=== PATIENT | male | born 1945 | race Caucasian/White ===

== ENCOUNTER → 2017-07-21 08:49 | Outpatient (CLI) | payer MEDICARE, OTHER, SELFPAY ==
[2017-06-30 11:44] VITALS: BP 124/66; BMI 29.4
--- NOTE | 2017-07-21 08:56 | ECHOD_ITS ---
Reason For Study: Valve Replacement Eval Procedure This was a 2D Doppler, Color Flow transthoracic echocardiogram. Exam performed in department. Left Ventricle Normal LV size. Mild concentric left ventricular hypertrophy. Left ventricular systolic function is normal. The estimated ejection fraction is 60 %. Transmitral diastolic flow velocities suggest mild (stage 1) diastolic dysfunction (reversed pattern). No regional wall motion abnormalities noted. Right Ventricle Normal RV size. Normal systolic function. Atria Normal left atrium. The right atrium is mildly enlarged. Mitral Valve There is mild mitral annular calcification. Trivial eccentric mitral valve insufficiency. Tricuspid Valve Normal tricuspid valve. Mild (1+) tricuspid valve insufficiency. Pulmonary artery systolic pressure is 25 mmHg. Aortic Valve Peak aortic valve gradient 29 mmHg. Mean aortic valve gradient 16 mmHg. Mild aortic stenosis. Calculated aortic valve area (continuity equation) is 1.7 cm2. Stable appearing bioprosthetic aortic valve apparatus. Pulmonic Valve Normal pulmonic valve. Great Vessels Normal aortic root. The pulmonary artery is normal size. Normal inferior vena cava. Pericardium/Pleural No pericardial effusion. MMode/2D Measurements & Calculations LVIDd: 4.7 cm IVSd: 1.4 cm LVOT diam: 2.1 cm LVIDs: 3.0 cm LVPWd: 1.2 cm LVOT area: 3.6 cm2 RVDd: 4.9 cm FS: 36.5 % Ao root diam: 3.2 cm LAV(MOD-bp): 54.1 ml LA A4 area: 18.0 cm2 LA dimension: 4.5 cm LAV(MOD-bp) Indexed: 25.5 ml/m2 LAV(MOD-sp2): 56.0 ml LAV(MOD-sp4): 44.9 ml RA A4 area: 21.6 cm2 Time Measurements MV dec time: 0.16 sec Doppler Measurements & Calculations MV E max angel: 94.8 cm/sec Lat Peak E' Angel: 5.6 cm/sec Med Peak E' Angel: 6.9 cm/sec MV A max angel: 113.1 cm/sec E/E' lat: 17.1 E/E' med: 13.7 MV E/A: 0.84 MV V2 max: 114.9 cm/sec MV P1/2t max angel: 99.8 cm/sec Ao V2 max: 267.6 cm/sec MV max P.3 mmHg MV P1/2t: 88.7 msec Ao max P.6 mmHg MV V2 mean: 68.1 cm/sec MV dec slope: 329.5 cm/sec2 Ao V2 mean: 192.9 cm/sec MV mean P.1 mmHg MVA(P1/2t): 2.5 cm2 Ao mean P.6 mmHg MV V2 VTI: 38.1 cm Ao V2 VTI: 61.7 cm MVA(VTI): 2.7 cm2 PATIENCE(I,D): 1.7 cm2 PATIENCE(V,D): 1.8 cm2 LV V1 max: 134.9 cm/sec SV(LVOT): 103.6 ml PA V2 max: 113.5 cm/sec LV V1 max P.3 mmHg LV V1 mean P.6 mmHg LV V1 mean: 102.8 cm/sec LV V1 VTI: 29.2 cm PI end-d angel: 98.4 cm/sec TR max angel: 227.7 cm/sec TR max P.8 mmHg Interpretation Summary Normal LV size. Mild concentric left ventricular hypertrophy. Left ventricular systolic function is normal. The estimated ejection fraction is 60 %. Transmitral diastolic flow velocities suggest mild (stage 1) diastolic dysfunction (reversed pattern). Mild aortic stenosis. Stable appearing bioprosthetic aortic valve apparatus. Ordering Physician: Nicolás Mahajan Referring Physician: Matheus Howard Performed By: Merlyn Handy, ULICES, RVT
== END ==
PROVIDERS: Family Provider Family Medicine; PCP Family Medicine; Visit Provider Internal Medicine Cardiovascular Disease
DX: I48.0 Paroxysmal atrial fibrillation (principal)
CPT/HCPCS: 93306

== ENCOUNTER → 2019-07-31 10:47 | Outpatient (CLI) | payer MEDICARE, OTHER, SELFPAY ==
[2019-07-04 09:52] VITALS: BMI 27.6
--- NOTE | 2019-07-31 10:47 | ECHOD_ITS ---
Version 2 Reason For Study: Valve Replacement Eval Procedure This was a 2D Doppler, Color Flow transthoracic echocardiogram. Exam performed in department. Left Ventricle Normal LV size. Left ventricular systolic function is normal. The estimated ejection fraction is 60 %. Stage 1 diastolic dysfunction. No regional wall motion abnormalities noted. Right Ventricle Normal RV size. Normal systolic function. Atria Normal left atrium. Normal right atrium. Mitral Valve Normal mitral valve. Tricuspid Valve Normal tricuspid valve. Mild (1+) tricuspid valve insufficiency. Pulmonary artery systolic pressure is 35 mmHg. Aortic Valve Mild diffuse aortic valve thickening. Peak aortic valve gradient 35 mmHg. Mean aortic valve gradient 20 mmHg. Mild aortic stenosis. Bioprosthetic aortic valve. Pulmonic Valve Normal pulmonic valve. Great Vessels Normal aortic root. The pulmonary artery is normal size. Normal inferior vena cava. Pericardium/Pleural No pericardial effusion. MMode/2D Measurements & Calculations LVIDd: 4.7 cm IVSd: 1.3 cm LVOT diam: 2.1 cm LVIDs: 2.6 cm LVPWd: 1.1 cm LVOT area: 3.4 cm2 RVDd: 4.5 cm FS: 44.2 % Ao root diam: 3.6 cm LAV(MOD-bp): 60.3 ml LVAd ap4: 29.4 cm2 LAV(MOD-bp) Indexed: 29.3 ml/m2 EDV(MOD-sp4): 82.9 ml LAV(MOD-sp2): 68.8 ml EDV(sp4-el): 86.3 ml LAV(MOD-sp4): 49.7 ml LVAs ap4: 15.1 cm2 ESV(MOD-sp4): 26.6 ml ESV(sp4-el): 26.4 ml EF(MOD-sp4): 67.9 % EF(sp4-el): 69.4 % SV(MOD-sp4): 56.3 ml SV(sp4-el): 59.9 ml LA A4 area: 18.3 cm2 LA dimension(2D): 4.7 cm RA A4 area: 18.4 cm2 Doppler Measurements & Calculations MV E max angel: 97.5 cm/sec Lat Peak E' Angel: 6.9 cm/sec Med Peak E' Angel: 6.5 cm/sec MV A max angel: 122.4 cm/sec E/E' lat: 14.1 E/E' med: 15.0 MV E/A: 0.80 MV V2 max: 132.0 cm/sec Ao V2 max: 296.7 cm/sec LV V1 max: 155.0 cm/sec MV max P.0 mmHg Ao max P.2 mmHg LV V1 max P.6 mmHg MV V2 mean: 80.4 cm/sec Ao V2 mean: 215.0 cm/sec LV V1 mean P.3 mmHg MV mean P.8 mmHg Ao mean P.2 mmHg LV V1 mean: 121.2 cm/sec MV V2 VTI: 43.5 cm Ao V2 VTI: 64.7 cm LV V1 VTI: 34.1 cm MVA(VTI): 2.6 cm2 PATIENCE(I,D): 1.8 cm2 PATIENCE(V,D): 1.8 cm2 SV(LVOT): 114.4 ml PA V2 max: 117.5 cm/sec TR max angel: 276.6 cm/sec TR max P.6 mmHg Interpretation Summary Normal LV size. Left ventricular systolic function is normal. The estimated ejection fraction is 60 %. Pulmonary artery systolic pressure is 35 mmHg. Bioprosthetic aortic valve. Mean aortic valve gradient 20 mmHg. Mild aortic stenosis. Stage 1 diastolic dysfunction. Compared to prior study, there is no significant change. Ordering Physician: Nicolás Mahajan Referring Physician: Matheus Howard Performed By: Merlyn Handy, ULICES, RVT
== END ==
PROVIDERS: PCP Family Medicine; Referring Provider Internal Medicine Cardiovascular Disease; Visit Provider Internal Medicine Cardiovascular Disease
DX: I48.0 Paroxysmal atrial fibrillation (principal)
CPT/HCPCS: 93306

== ENCOUNTER → 2020-07-24 09:48 | Outpatient (CLI) | payer MEDICARE, OTHER, SELFPAY ==
[2020-07-04 08:55] VITALS: BMI 26.6
--- NOTE | 2020-07-24 09:53 | ECHOD_ITS ---
Version 2 Reason For Study: VALVE REPL Procedure This was a 2D Doppler, Color Flow transthoracic echocardiogram. Exam performed in department. Left Ventricle Normal LV size. Left ventricular systolic function is normal. The estimated ejection fraction is 60 %. Stage 1 diastolic dysfunction. No regional wall motion abnormalities noted. Right Ventricle Normal RV size. Normal systolic function. Atria The left atrium is mildly enlarged. Normal right atrium. Mitral Valve Normal mitral valve. There is mild mitral annular calcification. Tricuspid Valve Normal tricuspid valve. Mild tricuspid valve insufficiency. Pulmonary artery systolic pressure is 34 mmHg. Aortic Valve Peak aortic valve gradient 31 mmHg. Mean aortic valve gradient 18 mmHg. Mild aortic stenosis. Bioprosthetic aortic valve. Pulmonic Valve Normal pulmonic valve. Great Vessels Normal aortic root. Pericardium/Pleural No pericardial effusion. MMode/2D Measurements & Calculations LVIDd: 4.5 cm IVSd: 1.1 cm LVOT diam: 2.0 cm LVIDs: 2.8 cm LVPWd: 1.1 cm LVOT area: 3.2 cm2 RVDd: 4.1 cm FS: 38.2 % Ao root diam: 3.9 cm LAV(MOD-bp): 76.0 ml LA A4 area: 23.3 cm2 LAV(MOD-bp) Indexed: 36.8 ml/m2 LAV(MOD-sp2): 77.2 ml LAV(MOD-sp4): 74.0 ml LA dimension(2D): 4.6 cm RA A4 area: 20.8 cm2 Time Measurements MV dec time: 0.30 sec Doppler Measurements & Calculations MV E max angel: 97.2 cm/sec Lat Peak E' Angel: 7.3 cm/sec Med Peak E' Angel: 5.8 cm/sec MV A max angel: 120.4 cm/sec E/E' lat: 13.3 E/E' med: 16.7 MV E/A: 0.81 MV V2 max: 123.7 cm/sec Ao V2 max: 278.6 cm/sec LV V1 max: 111.7 cm/sec MV max P.1 mmHg Ao max P.1 mmHg LV V1 max P.0 mmHg MV V2 mean: 69.3 cm/sec Ao V2 mean: 204.9 cm/sec LV V1 mean P.8 mmHg MV mean P.3 mmHg Ao mean P.3 mmHg LV V1 mean: 78.7 cm/sec MV V2 VTI: 43.4 cm Ao V2 VTI: 64.1 cm LV V1 VTI: 25.8 cm MVA(VTI): 1.9 cm2 PATIENCE(I,D): 1.3 cm2 PATIENCE(V,D): 1.3 cm2 SV(LVOT): 82.7 ml PA V2 max: 114.4 cm/sec PI end-d angel: 84.0 cm/sec TR max angel: 278.1 cm/sec MV P1/2t-pr_phl: 80.9 msec TR max P.9 mmHg Interpretation Summary Normal LV size. Left ventricular systolic function is normal. The estimated ejection fraction is 60 %. Stage 1 diastolic dysfunction. The left atrium is mildly enlarged. The global longitudinal strain is normal. The global longitudinal strain = -18.2 % (normal). Ordering Physician: Nicolás Mahajan Referring Physician: ALBAN GRAY Performed By: Shilpa Becker, HELADIOCS, RVT
== END ==
PROVIDERS: PCP Family Medicine; Referring Provider Internal Medicine Cardiovascular Disease; Visit Provider Internal Medicine Cardiovascular Disease
DX: I48.0 Paroxysmal atrial fibrillation (principal)
CPT/HCPCS: 93306

== ENCOUNTER → 2022-08-12 | Outpatient (CLI) | payer MEDICARE, OTHER, SELFPAY ==
--- NOTE | 2022-08-12 08:53 | ECHOD_ITS ---
Reason For Study: AVR Procedure This was a 2D Doppler, Color Flow transthoracic echocardiogram. Exam performed in department. Left Ventricle Normal LV size. Left ventricular systolic function is normal. The estimated ejection fraction is 60 %. No regional wall motion abnormalities noted. Right Ventricle Normal RV size. Normal systolic function. Atria The left atrium is moderately enlarged. The right atrium is mildly enlarged. Mitral Valve Normal mitral valve. Mild (1+) eccentric mitral valve insufficiency. Tricuspid Valve Normal tricuspid valve. Mild (1+) tricuspid valve insufficiency. Pulmonary artery systolic pressure is 40 mmHg. Aortic Valve Peak aortic valve gradient 33 mmHg. Mean aortic valve gradient 19.3 mmHg. Bioprosthetic aortic valve. Pulmonic Valve Normal pulmonic valve. Great Vessels Normal aortic root. The pulmonary artery is normal size. Normal inferior vena cava. Pericardium/Pleural No pericardial effusion. MMode/2D Measurements & Calculations LVIDd: 5.5 cm IVSd: 0.93 cm LVOT diam: 1.8 cm LVIDs: 3.8 cm LVPWd: 0.89 cm LVOT area: 2.4 cm2 RVDd: 4.2 cm FS: 31.4 % LAV(MOD-bp): 106.0 ml LVAd ap4: 35.0 cm2 SV(MOD-sp4): 75.8 ml LAV(MOD-bp) Indexed: 53.1 ml/m2 LVLd ap4: 9.1 cm LAV(MOD-sp2): 116.6 ml EDV(MOD-sp4): 116.4 ml LAV(MOD-sp4): 96.4 ml EDV(sp4-el): 113.9 ml LVAs ap4: 18.7 cm2 LVLs ap4: 7.4 cm ESV(MOD-sp4): 40.6 ml ESV(sp4-el): 39.8 ml EF(MOD-sp4): 65.1 % EF(sp4-el): 65.0 % SV(sp4-el): 74.1 ml LA A4 area: 28.1 cm2 LA dimension(2D): 5.6 cm RA A4 area: 23.1 cm2 Time Measurements MV dec time: 0.21 sec Doppler Measurements & Calculations MV E max angel: 117.7 cm/sec Lat Peak E' Angel: 8.2 cm/sec Med Peak E' Angel: 6.9 cm/sec MV A max angel: 111.1 cm/sec E/E' lat: 14.3 E/E' med: 16.9 MV E/A: 1.1 MV V2 max: 123.6 cm/sec MV P1/2t max angel: 232.9 cm/sec Ao V2 max: 286.7 cm/sec MV max P.1 mmHg MV P1/2t: 134.2 msec Ao max P.9 mmHg MV V2 mean: 78.1 cm/sec Ao V2 mean: 205.8 cm/sec MV mean P.8 mmHg MV dec slope: 508.2 cm/sec2 Ao mean P.3 mmHg MV V2 VTI: 46.3 cm MVA(P1/2t): 1.6 cm2 Ao V2 VTI: 73.8 cm AV (velocity ratio): 0.43 MVA(VTI): 1.7 cm2 PATIENCE(I,D): 1.0 cm2 PATIENCE(V,D): 1.0 cm2 LV V1 max: 118.4 cm/sec SV(LVOT): 77.2 ml PA V2 max: 104.2 cm/sec LV V1 max P.6 mmHg PA V2 mean: 64.3 cm/sec LV V1 mean P.9 mmHg LV V1 mean: 94.5 cm/sec LV V1 VTI: 31.5 cm TR max angel: 304.3 cm/sec TR max P.0 mmHg ECHO/Echo Complete Interpretation Summary Normal LV size. Left ventricular systolic function is normal. The left atrium is moderately enlarged. The right atrium is mildly enlarged. The estimated ejection fraction is 60 %. Bioprosthetic aortic valve. Mean aortic valve gradient 19.3 mmHg. Compared to previous study, the left ventricular systolic function is the same. . Ordering Physician: Nicolás Mahajan Referring Physician: Nicolás Mahajan Performed By: Yun Newtno RCS
== END | disposition home or self-care (01) ==
LOC: CVS 08:52
PROVIDERS: PCP Family Medicine; Referring Provider Internal Medicine Cardiovascular Disease; Visit Provider Internal Medicine Cardiovascular Disease
DX: I35.0 Nonrheumatic aortic (valve) stenosis (principal)
CPT/HCPCS: 93306

== ENCOUNTER → 2023-09-03 | Outpatient (CLI) | payer MEDICARE, OTHER, SELFPAY ==
--- NOTE | 2023-09-03 08:34 | ECHOD_ITS ---
Reason For Study: AVR, Afib Procedure This was a 2D Doppler, Color Flow transthoracic echocardiogram. Exam performed in department. Left Ventricle Normal LV size. Left ventricular systolic function is normal. The estimated ejection fraction is 65 %. Stage 1 diastolic dysfunction. No regional wall motion abnormalities noted. Right Ventricle Normal RV size. Normal systolic function. Atria Normal left atrium. Normal right atrium. Mitral Valve Bileaflet diffuse mitral valve thickening. Mild (1+) eccentric mitral valve insufficiency. Tricuspid Valve Normal tricuspid valve. Mild (1+) tricuspid valve insufficiency. Pulmonary artery systolic pressure is 43 mmHg. Aortic Valve Peak aortic valve gradient 40 mmHg. Mean aortic valve gradient 25 mmHg. Mild (1+) aortic valve insufficiency. Bioprosthetic aortic valve. Pulmonic Valve Normal pulmonic valve. Great Vessels Normal aortic root. The pulmonary artery is normal size. Inferior vena cava collapse with respiration. Pericardium/Pleural No pericardial effusion. MMode/2D Measurements & Calculations LVIDd: 4.8 cm IVSd: 0.95 cm LVOT diam: 2.0 cm LVIDs: 2.8 cm LVPWd: 0.96 cm LVOT area: 3.1 cm2 RVDd: 4.4 cm FS: 43.1 % Ao root diam: 3.7 cm LAV(MOD-bp): 51.6 ml LVAd ap4: 35.9 cm2 LAV(MOD-bp) Indexed: 26.5 ml/m2 LVLd ap4: 9.0 cm LAV(MOD-sp2): 57.9 ml EDV(MOD-sp4): 118.7 ml LAV(MOD-sp4): 43.6 ml EDV(sp4-el): 121.3 ml LVAs ap4: 18.8 cm2 LVLs ap4: 7.6 cm ESV(MOD-sp4): 41.9 ml ESV(sp4-el): 39.3 ml EF(MOD-sp4): 64.7 % EF(sp4-el): 67.6 % SV(MOD-sp4): 76.8 ml SV(sp4-el): 82.0 ml LA A4 area: 16.8 cm2 LA dimension(2D): 4.8 cm RA A4 area: 16.2 cm2 TAPSE: 2.5 cm Time Measurements MV dec time: 0.31 sec Doppler Measurements & Calculations MV E max angel: 114.3 cm/sec Lat Peak E' Angel: 5.5 cm/sec Med Peak E' Angel: 4.7 cm/sec MV A max angel: 121.3 cm/sec E/E' lat: 20.6 E/E' med: 24.3 MV E/A: 0.94 Ao V2 max: 316.6 cm/sec AI max angel: 455.0 cm/sec MV dec slope: 370.1 cm/sec2 Ao max P.6 mmHg AI max P.8 mmHg Ao V2 mean: 237.7 cm/sec Ao mean P.8 mmHg AI dec slope: 196.9 cm/sec2 Ao V2 VTI: 77.2 cm AI P1/2t: 676.7 msec AV (velocity ratio): 0.50 PATIENCE(I,D): 1.5 cm2 PATIENCE(V,D): 1.5 cm2 LV V1 max: 153.4 cm/sec SV(LVOT): 117.7 ml PA V2 max: 101.1 cm/sec LV V1 max P.4 mmHg LV V1 mean P.9 mmHg LV V1 mean: 117.2 cm/sec LV V1 VTI: 38.5 cm TR max angel: 313.4 cm/sec TR max P.3 mmHg ECHO/Echo Complete Interpretation Summary Normal LV size. Left ventricular systolic function is normal. The estimated ejection fraction is 65 %. Stage 1 diastolic dysfunction. Mean aortic valve gradient 25 mmHg. The previous mean aortic valve gradient in 2022 was 19. Bioprosthetic aortic valve. Ordering Physician: Sourav Handy Referring Physician: Matheus Howard Performed By: Merlyn Handy RDCS, RVT
== END | disposition home or self-care (01) ==
LOC: CVS 08:31
PROVIDERS: PCP Family Medicine; Referring Provider Nurse Practitioner Family; Visit Provider Nurse Practitioner Family
DX: I35.0 Nonrheumatic aortic (valve) stenosis (principal); I48.0 Paroxysmal atrial fibrillation; Z95.2 Presence of prosthetic heart valve
CPT/HCPCS: 93306

== ENCOUNTER → 2024-09-05 | Outpatient (CLI) | payer MEDICARE, OTHER, SELFPAY ==
--- NOTE | 2024-09-05 12:44 | ECHOD_ITS ---
Reason For Study Reason For Study: Prosthetic Heart Valve Procedure This was a 2D Doppler, Color Flow transthoracic echocardiogram. Exam performed in department. Left Ventricle Normal LV size. Left ventricular systolic function is normal. The left ventricular ejection fraction is 65 %. Stage 1 diastolic dysfunction. No regional wall motion abnormalities noted. Right Ventricle Normal RV size. Normal systolic function. Atria Normal left atrium. Normal right atrium. Mitral Valve Bileaflet diffuse mitral valve thickening. Mild (1+) eccentric mitral valve insufficiency. Tricuspid Valve Normal tricuspid valve. Mild (1+) tricuspid valve insufficiency. Pulmonary artery systolic pressure is 29 mmHg. Aortic Valve Peak aortic valve gradient 74 mmHg. Mean aortic valve gradient 46 mmHg. Mild (1+) aortic valve insufficiency. Bioprosthetic aortic valve. Pulmonic Valve Normal pulmonic valve. Great Vessels Normal aortic root. The pulmonary artery is normal size. Normal inferior vena cava. Pericardium/Pleural No pericardial effusion. MMode/2D Measurements & Calculations LVIDd: 5.0 cm IVSd: 1.2 cm LVOT diam: 2.0 cm LVIDs: 3.0 cm LVPWd: 1.1 cm LVOT area: 3.1 cm2 RVDd: 3.9 cm FS: 39.7 % Ao root diam: 3.4 cm LAV(MOD-bp): 71.9 ml LVAd ap4: 38.0 cm2 LAV(MOD-bp) Indexed: 37.3 ml/m2 LVLd ap4: 9.1 cm LAV(MOD-sp2): 91.1 ml EDV(MOD-sp4): 131.4 ml LAV(MOD-sp4): 54.4 ml EDV(sp4-el): 134.7 ml LVAs ap4: 20.1 cm2 LVLs ap4: 7.2 cm ESV(MOD-sp4): 47.0 ml ESV(sp4-el): 47.2 ml EF(MOD-sp4): 64.2 % EF(sp4-el): 64.9 % SV(MOD-sp4): 84.4 ml SV(sp4-el): 87.4 ml LA A4 area: 19.6 cm2 SI(MOD-sp4): 43.8 ml/m2 LA dimension(2D): 4.7 cm RA A4 area: 17.3 cm2 TAPSE: 2.0 cm Time Measurements MV dec time: 0.37 sec Doppler Measurements & Calculations MV E max angel: 105.6 cm/sec Lat Peak E' Angel: 10.1 cm/sec Med Peak E' Angel: 6.9 cm/sec MV A max angel: 120.0 cm/sec E/E' lat: 10.5 E/E' med: 15.2 MV E/A: 0.88 MV V2 max: 120.1 cm/sec Ao V2 max: 430.2 cm/sec MV max P.8 mmHg MV dec slope: 282.0 cm/sec2 Ao max P.1 mmHg MV V2 mean: 71.4 cm/sec Ao V2 mean: 328.0 cm/sec MV mean P.4 mmHg Ao mean P.5 mmHg MV V2 VTI: 42.4 cm Ao V2 VTI: 109.4 cm AV (velocity ratio): 0.38 MVA(VTI): 3.1 cm2 PATIENCE(I,D): 1.2 cm2 PATIENCE(V,D): 1.1 cm2 AI max angel: 429.9 cm/sec LV V1 max: 157.8 cm/sec SV(LVOT): 130.4 ml AI max P.0 mmHg LV V1 max P.0 mmHg LV V1 mean P.5 mmHg AI dec slope: 332.8 cm/sec2 LV V1 mean: 122.8 cm/sec AI P1/2t: 378.3 msec LV V1 VTI: 42.0 cm PA V2 max: 100.3 cm/sec TR max angel: 249.7 cm/sec TR max P.9 mmHg ECHO/Echo Complete Interpretation Summary Normal LV size. Left ventricular systolic function is normal. The left ventricular ejection fraction is 65 %. Stage 1 diastolic dysfunction. Mean aortic valve gradient 46 mmHg. Mild (1+) aortic valve insufficiency. Bioprosthetic aortic valve. Compared to the previous the aortic valve gradients are significantly increased . Ordering Physician: Sourav Handy Referring Physician: Matheus Howard Performed By: Merlyn Handy, ULICES, RVT
== END | disposition home or self-care (01) ==
LOC: CVS 12:41
PROVIDERS: PCP Family Medicine; Referring Provider Nurse Practitioner Family; Visit Provider Nurse Practitioner Family
DX: I35.0 Nonrheumatic aortic (valve) stenosis (principal); I48.0 Paroxysmal atrial fibrillation; I10 Essential (primary) hypertension; E78.5 Hyperlipidemia, unspecified; Z95.2 Presence of prosthetic heart valve
CPT/HCPCS: 93306

== ENCOUNTER → 2024-09-21 | Outpatient (CLI) | payer MEDICARE, OTHER, SELFPAY ==
--- NOTE | 2024-09-21 10:33 | RAD_ITS ---
PROCEDURE: CHEST PA AND LATERAL 09/21/2024 REASON FOR EXAM: AVR TECHNIQUE: Frontal and lateral views of the chest. COMPARISON: None available FINDINGS: The lungs appear clear. Pulmonary vascularity appears within limits. No pleural effusion. Incidental note of an azygous fissure, anatomic variant. Status post median sternotomy and aortic valve replacement. The cardiac and mediastinal contours appear within limits. Atherosclerotic changes at the aortic arch. Visualized osseous structures appear within limits. RAD/Chest PA and Lateral IMPRESSION: No evidence of acute disease. Reading Location: [id number]
[2024-09-21 11:25] LABS: Absolute Lymphocyte Count 1.39 X10^3/uL (0.83-4.51); Basophil# 0.04 X10^3/uL; Basophil% 0.6 % (0-1); Eosinophil# 0.12 X10^3/uL; Eosinophils% 1.9 % (0-5); Hemoglobin 14.1 g/dL (13.0-16.5); Lymphocyte # 1.39 X10^3/ul (0.83-4.51); Lymphocyte % 22.5 % (19-41); Mean Corp Hgb Conc 33.6 g/dL (32-36); Mean Corpuscular Hgb 32.4 pg (27.0-32.0); Mean Corpuscular Volume 96.6 fL (80-94); Mean Platelet Vol. 11.3 fl (6.2-12.0); Monocyte# 0.62 X10^3/uL; NRBC Flagged by Analyzer 0 % (0-5); Neutrophil # 3.97 X10^3/uL (2.7-7.7); Neutrophil % 64.5 % (47-70); Platelet Count 116 K/mm3 (150-450); RBC Distribution Width CV 12.8 % (11.6-14.6); RBC Distribution Width SD 44.9 fl (35.1-43.9); Red Blood Count 4.35 M/mm3 (4.6-6.2); White Blood Count 6.2 K/mm3 (4.4-11.0)
[2024-09-21 13:29] LABS: Anion Gap 11 (5-15); BUN 19 mg/dL (4-19); BUN/Creat Ratio 18.3 RATIO (10-20); Calcium,Total 8.9 mg/dL (7.6-11.0); Carbon Dioxide 24.9 mmol/L (21.0-32.0); Chloride 107 mmol/L (98-108); Creatinine, Serum 1.01 mg/dL (0.70-1.20); EST Glomerular Filtration Rate 77 (>60); Glucose 92 mg/dL (70-99); Potassium 4.2 mmol/L (3.3-5.1); Sodium Level 143 mmol/L (133-145)
== END | disposition home or self-care (01) ==
LOC: LAB 10:22
PROVIDERS: PCP Family Medicine; Referring Provider Internal Medicine Cardiovascular Disease; Visit Provider Internal Medicine Cardiovascular Disease
DX: I35.0 Nonrheumatic aortic (valve) stenosis (principal); Z95.2 Presence of prosthetic heart valve
CPT/HCPCS: 36415; 71046; 80048; 85025

== ENCOUNTER 2024-10-09 09:36 | Day surgery (SDC) | payer MEDICARE, OTHER, SELFPAY ==
[2024-10-06 08:17] VITALS: BMI 23.4
--- NOTE | 2024-10-09 09:41 | ECHOTEE_ITS ---
Reason For Study Reason For Study: AORTIC STENOSIS Medication RICARDO probe 6VT-D (SN [id number]) passed without difficulty. No complications were noted. Cetacaine Topical [place] given X3 orally. Versed 2 mg given slow IVP. Fentanyl 50 mcg given slow IVP. Performed a rapid injection of agitated mix of 9 cc saline and 1cc air to assess for atrial septal defect. Left Ventricle Normal LV size. Left ventricular systolic function is normal. The left ventricular ejection fraction is 60 %. No regional wall motion abnormalities noted. Right Ventricle Normal RV size. Normal systolic function. Atria Bubble contrast study is negative for PFO/ASD. Normal left atrium. No thrombus is detected in the left atrial appendage. Normal right atrium. Mitral Valve Bileaflet diffuse mitral valve thickening. Mild (1+) eccentric mitral valve insufficiency. Tricuspid Valve Normal tricuspid valve. Mild tricuspid valve insufficiency. Aortic Valve Moderate (2+) eccentric aortic valve insufficiency. Bioprosthetic aortic valve. Pulmonic Valve Normal pulmonic valve. Mild (1+) pulmonic valve insufficiency. Vessels Normal aortic root. Pericardium No pericardial effusion. ECHO/Echo Transesophageal (RICARDO) Interpretation Summary Bubble contrast study is negative for PFO/ASD. Normal LV size. Left ventricular systolic function is normal. The left ventricular ejection fraction is 60 %. No thrombus is detected in the left atrial appendage. Mild (1+) eccentric mitral valve insufficiency. Bioprosthetic aortic valve. Moderate (2+) eccentric aortic valve insufficiency. Ordering Physician: Nicolás Mahajan Referring Physician: Nicolás Mahajan MD Performed By: Sol Aiken CHARI
--- NOTE | 2024-10-09 12:05 | CL.D_ITS ---
Patient Name: JOCE CANO Study Date: 10/09/2024 Performing: Nicolás Mahajan MD Ht: 71 inches 180.34 cm : 1945 Wt: 167.99 lbs 76.2 kg Age: 79 Gender: male BSA: 1.96 PROCEDURE(S) PERFORMED DC02-(40518)LHC/COR DC11-([id number])AO ROOT ANGIO WITH HEART CATH CLINICAL PROFILE AND INDICATIONS Indications: Valvular Disease Heart Failure: None Stress/Imaging Stress/Image Study Performed: No CAD Presentations: Other: sob CONCLUSIONS Normal coronary arteries Normal LV size, wall motion,and systolic function Bioprosthetic aortic valve with 2-3+ aortic regurgitation RECOMMENDATIONS /Aggressive control of blood pressure and will seek surgical or TAVR opinion DESCRIPTION OF PROCEDURE The patient arrived to the procedure lab. The risks and benefits of the procedure as well as a full description of our services here and current unavailability of surgical backup were fully explained to the patient and/or their significant other prior to the catheterization. The Timeout was completed, verifying the correct patient and procedure. The patient's procedural site was prepped and draped in the usual fashion. Local anesthetic was given subcutaneously to right radial region with Lidocaine 2%. Using a modified Seldinger technique, arterial access was obtained via the right radial artery, a 6Fr sheath was inserted. Left Coronary Artery selective angiography was performed in multiple views using a 5 Fr. 4.0 [place] catheter. Right Coronary Artery selective angiography was then performed in multiple views using a 5 Fr. 4.0 Cop[place] catheter. Ascending (root) aorta selective angiography was then performed in single view. Ascending (root) aorta selective angiography was then performed in single view.The arterial sheath was pulled and a TR Band was applied for hemostasis 10 ml of air CORONARY ANGIOGRAPHY DOMINANCE: Right Dominant LEFT HEART ASSESSMENT Left Ventricular Ejection Fraction: by Echo 60 % Normal LV wall motion Normal Left Ventricular systolic function LEFT MAIN: Angiographically normal LEFT ANTERIOR DESCENDING ARTERY: No significant disease noted CIRCUMFLEX ARTERY: No significant disease noted RIGHT CORONARY ARTERY: Angiographically normal VALVE FINDINGS: Bioprosthetic trileaflet aortic valve Aortic Valve Insufficiency: Grade 2-3 AORTIC ROOT: Angiographically normal COMPLICATIONS No Complications PROCEDURE MEDICATIONS Oxygen: 2 L/min via nasal cannula Heparin given IA 10/09/2024 11:39:02 Verapamil 2.5mg, Ntg 100mcgs, 3000 units of Heparin given IA 10/09/2024 11:39:02 SUMMARY OF HEMODYNAMIC DATA Time AIR REST AO 0/0 (0) 11:35:22 AO 192/55 (93) 11:38:40 AO 135/52 (84) 11:40:48 12:03:26 Signed By Nicolás Mahajan MD On 10/09/2024 12:04:47 Nicolás Mahajan MD
== END 2024-10-09 14:11 | disposition home or self-care (01) ==
PROVIDERS: PCP Family Medicine; Referring Provider Internal Medicine Cardiovascular Disease; Visit Provider Internal Medicine Cardiovascular Disease
DX: Z95.2 Presence of prosthetic heart valve (principal); I48.0 Paroxysmal atrial fibrillation; I35.0 Nonrheumatic aortic (valve) stenosis; I10 Essential (primary) hypertension; I35.1 Nonrheumatic aortic (valve) insufficiency; E78.2 Mixed hyperlipidemia; N40.0 Benign prostatic hyperplasia without lower urinary tract symptoms; Z79.82 Long term (current) use of aspirin; Z79.899 Other long term (current) drug therapy; Z86.718 Personal history of other venous thrombosis and embolism; I08.3 Combined rheumatic disorders of mitral, aortic and tricuspid valves; I08.1 Rheumatic disorders of both mitral and tricuspid valves; R94.39 Abnormal result of other cardiovascular function study
CPT/HCPCS: 93312; 93320; 93325; 93454; 93567; Q9967; A4216; C1769; C1894

== ENCOUNTER → 2025-04-11 | Outpatient (CLI) | payer MEDICARE, OTHER, SELFPAY ==
--- NOTE | 2025-04-11 08:50 | ECHOL_ITS ---
Reason For Study : VALVE REPLACEMENT HISTORY Procedure This was a limited 2D transthoracic echocardiogram. Exam performed in department. Left Ventricle Normal LV size. The left ventricular ejection fraction is 65 %. No regional wall motion abnormalities noted. Right Ventricle Normal RV size. Normal systolic function. Atria Normal left atrium. Normal right atrium. Mitral Valve There is moderate mitral annular calcification. Mild (1+) eccentric mitral valve insufficiency. Tricuspid Valve Normal tricuspid valve. Mild (1+) tricuspid valve insufficiency. Pulmonary artery systolic pressure is 24 mmHg. Aortic Valve Peak aortic valve gradient 55 mmHg. Mean aortic valve gradient 30 mmHg. Mild (1+) aortic valve insufficiency. Bioprosthetic aortic valve. Pulmonic Valve Normal pulmonic valve. Great Vessels Normal aortic root. The pulmonary artery is normal size. Inferior vena cava collapse with respiration. Pericardium/Pleural No pericardial effusion. MMode/2D Measurements & Calculations LVIDd: 5.4 cm IVSd: 1.0 cm LVOT diam: 2.0 cm LVIDs: 3.7 cm LVPWd: 1.0 cm LVOT area: 3.1 cm2 FS: 31.8 % asc Aorta Diam: 3.6 cm LAV(MOD-bp): 70.4 ml LVAd ap4: 46.6 cm2 LAV(MOD-bp) Indexed: 35.9 ml/m2 LVLd ap4: 9.7 cm LAV(MOD-sp2): 74.6 ml EDV(MOD-sp4): 183.5 ml LAV(MOD-sp4): 64.7 ml EDV(sp4-el): 189.6 ml LVAs ap4: 25.6 cm2 LVLs ap4: 8.4 cm ESV(MOD-sp4): 66.4 ml ESV(sp4-el): 66.4 ml EF(MOD-sp4): 63.8 % EF(sp4-el): 65.0 % LVAd ap2: 37.9 cm2 SV(MOD-sp4): 117.1 ml SV(MOD-sp2): 81.1 ml LVLd ap2: 9.2 cm SI(MOD-sp4): 59.8 ml/m2 SI(MOD-sp2): 41.4 ml/m2 EDV(MOD-sp2): 133.9 ml EDV(sp2-el): 132.1 ml LVAs ap2: 22.8 cm2 LVLs ap2: 8.1 cm ESV(MOD-sp2): 52.8 ml ESV(sp2-el): 54.1 ml EF(MOD-sp2): 60.5 % SV(sp4-el): 123.2 ml Ao sinus diam: 2.[address] Junction: 2.6 cm LA A4 area: 21.6 cm2 RA A4 area: 20.3 cm2 Doppler Measurements & Calculations Ao V2 max: 371.4 cm/sec AI max sophia: 506.8 cm/sec LV V1 max: 149.1 cm/sec Ao max P.2 mmHg AI max P.1 mmHg LV V1 max P.9 mmHg Ao V2 mean: 257.7 cm/sec AI dec slope: 361.6 cm/sec2 LV V1 mean P.5 mmHg Ao mean P.4 mmHg AI P1/2t: 410.5 msec LV V1 mean: 110.5 cm/sec Ao V2 VTI: 89.3 cm LV V1 VTI: 39.5 cm AV (velocity ratio): 0.44 PATIENCE(I,D): 1.4 cm2 PATIENCE(V,D): 1.2 cm2 SV(LVOT): 121.8 ml TR max sophia: 231.2 cm/sec TR max P.4 mmHg ECHO/Echo, Limited Study Interpretation Summary Normal LV size. The left ventricular ejection fraction is 65 %. Mean aortic valve gradient 30 mmHg. Mild (1+) aortic valve insufficiency. There is moderate mitral annular calcification. Mild (1+) eccentric mitral valve insufficiency. Bioprosthetic aortic valve. Ordering Physician: Sourav Handy Referring Physician: Matheus Howard Performed By: Chidi Weir RDCS
== END | disposition home or self-care (01) ==
LOC: CVS 08:49
PROVIDERS: PCP Family Medicine; Referring Provider Nurse Practitioner Family; Visit Provider Nurse Practitioner Family
DX: I48.0 Paroxysmal atrial fibrillation (principal); Z95.2 Presence of prosthetic heart valve; I10 Essential (primary) hypertension; E78.2 Mixed hyperlipidemia
CPT/HCPCS: 93308